=== PATIENT | female | born 1995 | race Caucasian/White ===

== ENCOUNTER 2020-05-18 10:01 | Emergency (ER) | payer OTHER, SELFPAY ==
[2020-05-18 10:15] VITALS: BP 106/70; PULSE 68; RESP 18; TEMP 36.4; O2SAT 99
--- NOTE | 2020-05-18 11:04 | PC.NURSE ---
rn report given to adrian.
--- NOTE | 2020-05-18 11:48 | ED.GENADULT ---
HPI - General Adult General Chief complaint: Wound/Laceration <Cholo Perez PA-C - Last Filed: 05/18/20 11:54> Stated complaint: hand laceration <SRIKANTH Mckeon Last Filed: 05/18/20 11:54> Time Seen by Provider: 05/18/20 10:16 <Cholo Perez PA-C - Last Filed: 05/18/20 11:54> Source: patient <SRIKANTH Mckeon Last Filed: 05/18/20 11:54> Mode of arrival: ambulatory <Cholo Perez PA-C - Last Filed: 05/18/20 11:54> Limitations: no limitations <SRIKANTH Mckeon Last Filed: 05/18/20 11:54> History of Present Illness HPI narrative: Patient is a 24-year-old female who presents with a laceration of the left hand 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 on a sharp edge patient has laceration of the lower palm patient denies any radicular symptoms or paresthesias notes mild pain that becomes moderate with touch or activity <Cholo Perez PA-C - Last Filed: 05/18/20 11:54> Related Data Home medications: Home Medications Medication Instructions Recorded Confirmed No Home Medications 05/18/20 05/18/20 <Cholo Perez PA-C - Last Filed: 05/18/20 11:54> Allergies/adverse reactions: Allergies Allergy/AdvReac Type Severity Reaction Status Date / Time No Known Allergies Allergy Verified 05/18/20 10:16 <Cholo Perez PA-C - Last Filed: 05/18/20 11:54> Review of Systems Review of Systems: All systems reviewed & are unremarkable except as noted in HPI and below <Cholo Perez PA-C - Last Filed: 05/18/20 11:54> PMFSH Social History Social History: Social History (Updated 05/18/20 @ 11:50 by Cholo Perez PA-C) Smoking status: Never smoker Gender identity (if verbalized by the patient): Female <Cholo Perez PA-C - Last Filed: 05/18/20 11:54> Exam Narrative: Exam Narrative: GENERAL: Well-appearing, well-nourished, and in no acute distress. HEAD: Normocephalic, atraumatic. EYES: PERRLA and EOMI. EXTREMITIES: Normal range of motion. No edema. SKIN: Warm, dry, no rash. 3 cm linear laceration extending to the subcutaneous tissues involving the palmar aspect of the left hand NEURO: No focal deficits. Alert and oriented x3. Neurovascularly intact. Capillary refill less than 2 seconds PSYCH: Normal mood and affect. <SRIKANTH Mckeon Last Filed: 05/18/20 11:54> Course Course Emergency Course: Patient in the room in no distress aware of case findings treatment plan and diagnosis agreeing to follow-up as directed or to return if symptoms worsen or concerns <SRIKANTH Mckeon Last Filed: 05/18/20 11:54> Vital Signs Vital signs: Vital Signs Temperature 36.4 C L 05/18/20 10:15 Pulse Rate 68 05/18/20 10:15 Respiratory Rate 18 05/18/20 10:15 Blood Pressure 106/70 05/18/20 10:15 Pulse Oximetry 99 05/18/20 10:15 Temperature 36.4 C L 05/18/20 10:15 Pulse Rate 78 05/18/20 12:16 Respiratory Rate 18 05/18/20 12:16 Blood Pressure 132/78 05/18/20 12:16 Pulse Oximetry 99 05/18/20 12:16 <Cholo Perez PA-C - Last Filed: 05/18/20 11:54> Vital Signs Temperature 36.4 C L 05/18/20 10:15 Pulse Rate 68 05/18/20 10:15 Respiratory Rate 18 05/18/20 10:15 Blood Pressure 106/70 05/18/20 10:15 Pulse Oximetry 99 05/18/20 10:15 Temperature 36.4 C L 05/18/20 10:15 Pulse Rate 78 05/18/20 12:16 Respiratory Rate 18 05/18/20 12:16 Blood Pressure 132/78 05/18/20 12:16 Pulse Oximetry 99 05/18/20 12:16 <Tiana Low MD - Last Filed: 05/18/20 13:57> Procedures Laceration Laceration 1: Date: 05/18/20 <SRIKANTH Mckeon Last Filed: 05/18/20 11:54> Time: 11:51 <SRIKANTH Mckeon Last Filed: 05/18/20 11:54> Site: upper extremity <SRIKANTH Mckeon Filed: 05/18/20 11:54> Side (If applicable): left <SRIKANTH Mckeon
[2020-05-18] MEDS: TETANUS,DIPHTHERIA,AC PERTUSSIS ADULT (0.5 ML) BOOSTRIX IM (12:01)
[2020-05-18 12:16] VITALS: BP 132/78; PULSE 78; RESP 18; O2SAT 99
== END 2020-05-18 12:17 | disposition home or self-care (01) ==
PROVIDERS: Emergency Provider Emergency Medicine
DX: S61.412A Laceration without foreign body of left hand, initial encounter (principal); W27.4XXA Contact with kitchen utensil, initial encounter; Z23 Encounter for immunization
CPT/HCPCS: 12002; 90471; 90715; 99282

== ENCOUNTER 2022-09-09 11:55 | Emergency (ER) | payer OTHER, SELFPAY ==
--- NOTE | ~2022-09-09 | CT_ITS ---
EXAMINATION: CTA pelvis DATE: 09/09/2022 15:09 INDICATION: Lumbosacral ecchymosis and hematoma. Assess for active bleeding. TECHNIQUE: Computed tomographic angiography (CTA) of the pelvis was performed with 100 mL Omnipaque-3 50 intravenous contrast. Multiplanar reconstructions and maximum intensity projection 3D-reconstructi ons were created by the technologist on a separate workstation. COMPARISON: None. FINDINGS: There is stranding in the subcutaneous fat surrounding a 9.0 x 8.0 x 2.8 cm ovoid soft tissue density mass situated centrally in the subcutaneous fat posterior to the L5-S2 segments of the lumbosacral s pine consistent with provided history of a hematoma. No evident active contrast extravasation. Visual ized portion of the infrarenal abdominal aorta, the bilateral common, external and internal iliac, bi lateral common femoral and visualized portion of the proximal bilateral superficial and profunda femo ral arteries all appear normal in caliber with no evident atherosclerosis, aneurysm or dissection. Th e inferior mesenteric artery is also normal. There is fatty infiltration of the wall of the proximal colon likely related to body habitus. No dilated the visualized portions of bowel to suggest obstruct ion. Normal appendix. Decompressed bladder is normal. Tampon within the vaginal vault. There is a T-s haped IUD which is positioned more caudally than typical with the proximal tip likely within the endo cervical canal. The left-sided limb of the IUD appears to extend into the myometrium with the tip pos itioned beyond the serosal margin of the uterus in the fat between the bladder and the anterior tawanda n of the vagina. 1.6 cm left ovarian cyst/follicle. Right ovary is unremarkable. No free fluid in the pelvis are visualized lower abdomen. No pathologically enlarged abdominal or pelvic lymphadenopathy. Old healed left superior and inferior pubic rami fractures. IMPRESSION: 1. Stranding surrounding a 9 x 8 x 2.8 cm subcutaneous mass posterior to the lumbosacral spine which would be consistent with provided history of a hematoma. No evident active contrast extravasation. 2. Malpositioned T-shaped IUD with proximal tip within the endocervical canal and the left-sided limb extending across the myometrium and beyond the serosal margin. Reviewed, dictated and finalized at location A. ERCIAL DIVER IMPRESSION: 1. Stranding surrounding a 9 x 8 x 2.8 cm subcutaneous mass posterior to the linda mbosacral spine which would be consistent with provided history of a hematoma. No evident active contrast extravasation. 2. Malpositioned T-shaped IUD with proximal tip within the endocervical canal a nd the left-sided limb extending across the myometrium and beyond the serosal m argin.
[2022-09-09 12:31] VITALS: BP 109/75; PULSE 100; RESP 16; TEMP 36.3; O2SAT 99
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
[2022-09-09 13:43] LABS: Basophils Absolute Auto 0.1 K/mm3 (0.0-0.1); Basophils Percent Auto 0.9 % (0.2-1.2); Eosinophils Absolute Auto 0.1 K/mm3 (0-0.3); Eosinophils Percent Auto 1.3 % (0-4.4); Hematocrit 40.7 % (37.0-47.0); Hemoglobin 13.4 g/dL (12.0-15.0); Immature Granulocyte Absolute 0.03 K/mm3 (0.00-0.031); Immature Granulocyte Percent A 0.4 % (0-0.5); Lymphocytes Absolute Auto 1.94 K/mm3 (0.9-3.2); Lymphocytes Percent Auto 23.6 % (18.3-44.2); Mean Corpuscular HGB Conc 32.9 g/dl (32-36); Mean Corpuscular Hemoglobin 32.8 pg (26-34); Mean Corpuscular Volume 99.8 fl (80-100); Mean Platelet Volume 9.4 fl (7.4-10.4); Monocytes Absolute Auto 0.8 K/mm3 (0.1-0.6); Monocytes Percent Auto 9.2 % (2.6-8.5); Neutrophils Absolute Auto 5.3 K/mm3 (1.3-6.7); Neutrophils Percent Auto 64.6 % (45.5-73.1); Platelet Count Result 278 k/mm3 (150-375); Red Blood Count 4.08 M/mm3 (4.2-5.4); Red Cell Distribution Width 12.8 % (11.5-14.5); White Blood Count 8.2 K/mm3 (4.5-10.0)
[2022-09-09 14:00] LABS: Alanine Aminotransferase 42 U/L (6-35); Albumin Level 4.1 g/dL (3.5-5.1); Alkaline Phosphatase 90 U/L (38-126); Anion Gap 7 mmol/L (8-16); Aspartate Amino Transferase 34 U/L (14-36); Blood Urea Nitrogen 13 mg/dL (7-17); Calcium 8.6 mg/dL (8.4-10.2); Carbon Dioxide 25 mmol/L (22-30); Chloride 105 mmol/L (98-107); Estimated CRCL calculation 76 ml/min; Estimated Glomerular Filt Rate > 60; Glucose 89 mg/dL (65-110); Potassium 3.8 mmol/L (3.4-5.0); Sodium 137 mmol/L (137-145)
--- NOTE | 2022-09-09 14:21 | PC.NURSE ---
CT called requesting negative test before CT scan. asked pt if she would be able to try and urinate for a test. pt states No I don't have to go and you all wont give me any water to drink spoke with MAXIMO Contreras and she states pt is unable to have anything to eat or drink before the CT scan. Relayed information to pt. pt still refusing to try for urine sample and is refusing straight catheter. MAXIMO Contreras made aware.
--- NOTE | 2022-09-09 14:47 | PC.NURSE ---
pt attempting for urine sample at this time.
[2022-09-09] MEDS: ONDANSETRON INJ 4 MG/2 ML VIAL IV PUSH (16:29)
[2022-09-09] MEDS: MORPHINE SULFATE (*CRX) 4 MG/ML INJ IV PUSH (16:29)
== END 2022-09-09 16:42 | disposition home or self-care (01) ==
PROVIDERS: Physician Assistant; Emergency Provider Emergency Medicine
DX: S30.0XXA Contusion of lower back and pelvis, initial encounter (principal); T83.32XA Displacement of intrauterine contraceptive device, initial encounter; F41.9 Anxiety disorder, unspecified; F17.200 Nicotine dependence, unspecified, uncomplicated; W03.XXXA Other fall on same level due to collision with another person, initial encounter; W22.8XXA Striking against or struck by other objects, initial encounter
CPT/HCPCS: 36415; 72191; 80053; 81025; 85025; 96365; 96375; 99284; J0131; J2270; J2405

== ENCOUNTER 2024-04-23 22:10 | Emergency (ER) | payer OTHER, SELFPAY ==
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
[2024-04-23 22:14] VITALS: BP 133/86; PULSE 98; RESP 18; TEMP 36.8; O2SAT 97
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
[2024-04-24] MEDS: TETANUS,DIPHTHERIA,AC PERTUSSIS ADULT (0.5 ML) BOOSTRIX IM (00:15)
[2024-04-24 00:46] VITALS: BP 136/88; PULSE 76; RESP 16; O2SAT 98
== END 2024-04-24 00:49 | disposition home or self-care (01) ==
PROVIDERS: Emergency Provider Physician Assistant
DX: S90.852A Superficial foreign body, left foot, initial encounter (principal); F17.210 Nicotine dependence, cigarettes, uncomplicated; Z23 Encounter for immunization; Y04.2XXA Assault by strike against or bumped into by another person, initial encounter
CPT/HCPCS: 73630; 90471; 90715; 99283